=== PATIENT | female | born 1955 | race Caucasian/White ===

== ENCOUNTER → 2022-12-26 | Outpatient (CLI) | payer MEDICARE, OTHER ==
[~2022-12-26] MED LIST: GADOTERATE 0.5 MMOL/ML (CLARISCAN) 15 ML VIAL IV ONE
[2022-12-26 12:47] LABS: CREATININE SERUM 0.93 MG/DL (0.60-1.30)
--- NOTE | 2022-12-26 14:55 | Diagnostic Imaging Report ---
PROCEDURE: MR imaging of the brain with and without contrast. TECHNIQUE: Multiplanar, multisequence MR imaging of the brain was performed with and without contrast. Indication: Seizure, headaches. Comparison: None. Technique: Multiplanar multisequence MRI of the brain was performed with and without intravenous contrast using the standard protocol. Contrast was administered intravenously during the exam. Findings: No acute infarct. No acute or chronic hemorrhage. The ventricles are normal in size and configuration without hydrocephalus. Mild scattered FLAIR hyperintensities in the subcortical and periventricular deep white matter, a nonspecific finding, most commonly seen with chronic small vessel ischemic disease. Normal appearance of the temporal lobes. No abnormal enhancement. The scalp and calvarium are normal. The pituitary and sella are normal. No Chiari malformation. The visualized upper cervical spine is normal. The visualized orbits and globes are normal. The visualized paranasal sinuses are clear. The mastoid air cells are clear. Normal flow voids within the vertebral, basilar, and internal carotid arteries indicating patency. IMPRESSION: 1. No acute infarct or hemorrhage. 2. No mass or abnormal enhancement. 3. Mild chronic small vessel disease. Mild global volume loss. Dictated by: Dictated on workstation # [id number]
--- NOTE | 2022-12-26 15:03 | Diagnostic Imaging Report ---
PROCEDURE: MR imaging cervical spine without contrast. TECHNIQUE: Multiplanar, multisequence MR imaging of the cervical spine was performed without contrast. INDICATION: Headache. COMPARISON: None FINDINGS: Straightening of the cervical lordosis. Mild anterolisthesis of C3-C4 and C4-C5. ACDF from C5 to C7. No acute fracture. Moderate multilevel degenerative disc desiccation and disc height loss. No marrow replacing process to suggest malignancy. Normal spinal cord signal. On the limited views of the cranial cavity and brain, the cerebellum and shoshana have normal morphology and signal characteristics. No Chiari malformation. No soft tissue abnormality. Normal signal voids are present in the vertebral arteries. Partially imaged lung apices demonstrate patchy multifocal nodular airspace opacities. C2-3: No significant spinal canal stenosis or neural foraminal narrowing. C3-4: Disc osteophyte complex. Uncovertebral and facet arthropathy. Moderate spinal canal stenosis. Severe left and moderate right neural foraminal narrowing.. C4-5: Disc osteophyte complex with central disc protrusion causing mass effect along the central aspect of the spinal cord. Ligamentum flavum thickening. Moderate to severe spinal canal stenosis. Mild bilateral neural foraminal narrowing. C5-6: No significant spinal canal stenosis or neural foraminal narrowing. C6-7: No significant spinal canal stenosis or neural foraminal narrowing. C7-T1: No significant spinal canal stenosis or neural foraminal narrowing. IMPRESSION: Moderate to severe spinal canal stenosis at C4-C5 and moderate spinal canal stenosis at C3-C4. Scattered nodular airspace opacities within the visualized lung apices may represent infectious process or metastatic disease. Recommend CT of the chest after further workup. Dictated by: Dictated on workstation # [id number]
== END ==
LOC: RAD 12:09
PROVIDERS: ATTEND Psychiatry & Neurology Neurology
DX: M48.02 Spinal stenosis, cervical region (principal); I67.89 Other cerebrovascular disease; G93.2 Benign intracranial hypertension
CPT/HCPCS: 36415; 70553; 72141; 82565; 84520